=== PATIENT | female | born 1945 | race Caucasian/White ===

== ENCOUNTER 2017-12-12 11:12 | Day surgery (SDC) | payer OTHER, MEDICAID ==
[~2017-12-12 11:12] MED LIST: ATROPINE 1 MG/10 ML SYRINGE IV; CEFAZOLIN 1 GM INJ; DIPHENHYDRAMINE 50 MG INJ IV; EPHEDrine SULFATE 50 MG/5 ML SYG IV; FENTAnyl 50 MCG/ML VIAL IV; HYDROmorphONE (0.2 MG/ML) 10ML SYG IV; LABETALOL HCL 20MG INJ IV; MEPERIDINE 25 MG INJ IV; MIDAZOLAM 1 MG/ML 2 ML INJ IV; ONDANSETRON 4 MG INJ IV; OXYCODONE/ACETAMINOPHEN (5/325) TAB PO; hydrALAzine 20 MG INJ IV; morphine (1 MG/ML) 10ML SYRINGE IV
[2017-12-12] MEDS ORDERED: ROCURONIUM 50 MG INJ (12:20)
[2017-12-12] MEDS ORDERED: PROPOFOL 20 ML (12:20)
[2017-12-12] MEDS ORDERED: GLYCOPYRROLATE 0.4 MG INJ (12:20)
[2017-12-12] MEDS ORDERED: NEOSTIGMINE 3 MG/3 ML SYRINGE (12:20)
[2017-12-12] MEDS ORDERED: FENTAnyl 50 MCG/ML VIAL (12:20)
[2017-12-12] MEDS ORDERED: LIDOCAINE 2% (SDV) 5 ML INJ (12:20)
[2017-12-12] MEDS ORDERED: MIDAZOLAM 1 MG/ML 2 ML INJ (12:20)
[2017-12-12] MEDS ORDERED: DEXAMETHASONE 4 MG/ML 1 ML INJ (12:20)
[2017-12-12] MEDS ORDERED: SUCCINYLCHOLINE CHLORIDE 100 MG/5 ML SYG IV ×2 (12:21→12:52)
[2017-12-12] MEDS ORDERED: ONDANSETRON 4 MG INJ (12:21)
[2017-12-12] MEDS: LIDOCAINE 1% (MDV) 20 ML INJ (12:59)
[2017-12-12] MEDS: BUPIVACAINE 0.5% (SDV) 30 ML INJ (13:36)
== END 2017-12-12 15:48 | disposition home or self-care (01) ==
LOC: SDS 11:12
DX: M20.12 Hallux valgus (acquired), left foot (principal); M21.612 Bunion of left foot; I10 Essential (primary) hypertension; E11.9 Type 2 diabetes mellitus without complications
CPT/HCPCS: 28298; 88304